=== PATIENT | female | born 1945 | race Caucasian/White ===

== ENCOUNTER 2024-05-05 13:11 | Outpatient (CLI) | payer MEDICARE, SELFPAY ==
--- NOTE | 2024-05-05 13:18 | XR_ITS ---
FINAL REPORT CLINICAL HISTORY: left shoulder pain COMPARISON: None FINDINGS: LEFT SHOULDER 3 views demonstrate no acute fracture or dislocation. There is mild degenerative change. The visualized bony structures are well aligned. No soft tissue abnormality is seen. IMPRESSION: Mild degenerative change without acute bony abnormality. Reviewed, Interpreted and Dictated by Jd Thorne III, MD Transcribed by Tayla Logan Authenticated and [facility]
--- NOTE | 2024-05-05 13:18 | XR_ITS ---
FINAL REPORT CLINICAL HISTORY: right knee pain COMPARISON: None FINDINGS: Three views of the right knee reveal no evidence of fracture or dislocation. The patient is status post knee arthroplasty. The bony alignment is normal. The joint spaces are preserved. There is no evidence of joint effusion. No localized soft tissue abnormality is identified. Mild vascular calcifications are noted. IMPRESSION: Postoperative changes without acute abnormality identified. Reviewed, Interpreted and Dictated by Jd Thorne III, MD Transcribed by Tayla Logan Authenticated and [facility]
== END 2024-05-05 23:59 | disposition home or self-care (01) ==
PROVIDERS: PCP Internal Medicine Adolescent Medicine; Visit Provider Orthopaedic Surgery
DX: M25.561 Pain in right knee (principal); M25.512 Pain in left shoulder
CPT/HCPCS: 73030; 73562

== ENCOUNTER 2025-06-15 16:40 | Outpatient (CLI) | payer MEDICARE, SELFPAY ==
--- OUTSIDE RECORDS SUMMARY | 2024-08-17 13:00 | XMS_ITS | Encounter Summary ---
Author Organization [employer] ([place], [place], [place], [place], [place]) Address [address] [place] [address] Care Team Providers Care Electrical Machinist Name Role Phone Ion Burdick MD Primary Care Provider + [phone] Reason for Visit * Consultation (Routine) - Closed Specialty Diagnoses / Procedures Referred By Contac t Referred To Contact Physical Therapy Diagnoses Lumbar spine pain Gary Dailey MD [address] [place] [phone] Phone: tel: fax: Referral ID Status Reason Start Date Expiration Date V isits Requested Visits Authorized [id number] Closed Specialty Services Required 08/03/2024 09/01/2024 4 4 Encounter Details Date Type Department Care Team (Late st Contact Info) Description 08/17/2024 1:00 PM EST Treatment [facility] OP Physical Therapy [address] [place] [phone] Gary Dailey MD [address] [place] [phone] Tanika Vasquez, PT Lumbar spine pain (Primary Dx) Social History Tobacco Use Types Packs/Day Years Used Date Smoking Tobacco: Former Cigarettes Smokeless Tobacco: Never Alcohol Use Standard Drinks/Week Comments Not Currently 0 (1 standard drink = 0.6 oz pur e alcohol) Family and Community Support Answer Hardik e Recorded Help with Day to Day Activities Not on file 07/09/2023 Feeling Lonely or Isolated Not on file 07/09 Educational Attainment Answer Date Dionisio rded Speak language other than Algerian at home Not on file 07/09/2023 Want help with school or training Not on file 07/09/2023 Substance Use Answer Date Recorded Used prescription meds for non-medical reasons N ot on file 07/09/2023 Used illegal drugs past 12 months Not on file 07/09/2023 Comments Unknown Sex and Gender Information Value Date Recorded Sex Assigned at Not on file Legal Sex Female 5:30 PM CDT Gender Identity Not on file Sexual Orientation Not on file documented as of this encounter Progress Notes * Tanika Vasquez, PT - 08/17/2024 1:00 PM EST Images from the original note were not included. Outpatient Physical Therapy Progress Note 08/17/2024 Time In: 1300 Time Out: 1354 Jacqueline Dean 1945 79 y.o. 1. Lumbar spine pain Referring Provider: Gary Dailey MD Insurance: Payor: [employer] [facility] - MEDICARE MGD CARE / Plan: [facility] [email or web address] O MAP / Product Type: *No Product type* / SUBJECTIVE Patient reports she is stiff this date. Pain: 08/03 OBJECTIVE Test/Measurements Lumbar ROM (%) Percent Deficit Flexion 25% to mid toribio Extension 50% with pain Left Sidebending 50% to knee Right Sidebending 50% to knee Left Rotation 50% Right Rotation 50% Hip and knee ROM were WNL Strength Hip LEFT RIGHT Flexion 4/5 4+/5 Abduction 5/5 5/5 ADDuction 4+/5 4+/5 Strength Knee LEFT RIGHT Flexion 4+/5 4/5 Extension 4+/5 4+/5 Functional Outcome Measure: Modified Oswestry: =6% INTERVENTIONS Therapeutic Exercise Sets x Repetitions Weight/Resistance Cues/Comments HEP Bike 8 minutes [] SLR 30 x [] Bridges 30 x [] LAQ 30 x [] LTR 30 x [] Sit to stand 20 x Blue pad in chair [] Forward step ups 30 x 6 inch box [] SAQ 30 x *Not performed this date due to time [] Hamstring Curls 2 x 15 50# [] Leg press 30x 60# [] [] [] [] [] [] [] [] [] [] [] Total Time (min): 54 Total Treatment (min): 54 Timed Treatment (min): Therapeutic Exercise (53425) 53 minutes ASSESSMENT Pt tolerated all interventions well this date. Pt did appear very short of breath when performing LAQ's and required a long rest break to complete. Pt's ROM appears the same in most planes. Lateral flexion bilaterally did increase to 50% deficit. Pt's strength increased slightly in most planes. Pt had no pain with ROM or MMT this date. Pt's Modified Oswestry improved to a 6% at this time. Pt verbalized she feels as though she has gotten stronger and is walking better. Pt's gait was observed to be improved and she does not need a cane at this time. Pt will continue to benefit from skilled therapy services to improve ROM, strength, and functional mobility. PLAN Jacqueline Dean requires skilled physical therapy services to address the below stated problems/goals, using Therapeutic Exercise (40553), Therapeutic Activity (53715), Manual Therapy (88795), Neuromuscular Re-education (86874), and Pt/CG Education. Skilled intervention required to decrease pain, increase range of motion, increase strength, increase flexibility, improve balance, improve motor control, and improve functional mobility. Prognosis: Good Problems: Pain Decreased ROM Decreased strength Decreased flexibility Decreased balance Decreased functional mobility Patient Goal: Decreased Pain Improve Mobility Improve Strength Improve Balance/Decrease Falls Resume ADL's w/o Symptoms Learn Home Exercise Program Patient Education: Eval results/Plan of Care, Safety precautions, and HEP Surgical Appliance Fitter Goals: Pt will score a 4+/5 for all MMT in 12 weeks to demonstrate improve strength to improve balance andfunctional mobility. Not met. See objective Pt will score a 22/50 on the Modified Oswestry in 12 weeks to demonstrate improved function and quality of life. Met 6% Pt lumbar rotation will improve to 25% deficit in 12 weeks to improve turning when doing dishes anddriving. Not met. Slow progress Patient will be independent with discharge home exercise program to improve household ADL's. Not met, ongoing Plan of Care Certification Date: 07/17/2024 - 10/09/2024 Frequency/Duration: 2x/Week for 12 weeks Electronically signed by: Tanika Vasquez PT 08/17/2024, 2:01PM IPLE RESAW OPERATOR * Millie Manley, PT - 08/17/2024 1:00 PM EST Images from the original note were not included. Outpatient Physical Therapy Discharge Summary 08/17/2024 Jacqueline Dean 1945 1. Lumbar spine pain Referring Physician: Gary Dailey MD Insurance: Payor: [employer] [facility] - MEDICARE [facility] CARE / Plan: [facility] ACCESS HMO MAP / Product Type: *No Product type* / Date Physical Therapy Initiated: 07/17/24 Date Physical Therapy Discontinued: 08/17/24 ASSESSMENT Functional Status at Discharge: Per last progress note on 08/17/24: Pt tolerated all interventions well this date. Pt did appear very short of breath when performing LAQ's and required a long rest break to complete. Pt's ROM appears the same in most planes. Lateral flexion bilaterally did increase to 50% deficit. Pt's strength increased slightly in most planes. Pt had no pain with ROM or MMT this date. Pt's Modified Oswestry improved to a 6% at this time. Pt verbalized she feels as though she has gotten stronger and is walking better. Pt's gait was observed to be improved and she does not need a cane at this time. Pt will continue to benefit from skilled therapy services to improve ROM, strength, and functional mobility. Prison Goals: Pt will score a 4+/5 for all MMT in 12 weeks to demonstrate improve strength to improve balance andfunctional mobility. Not met. See objective Pt will score a 22/50 on the Modified Oswestry in 12 weeks to demonstrate improved function and quality of life. Met 6% Pt lumbar rotation will improve to 25% deficit in 12 weeks to improve turning when doing dishes anddriving. Not met. Slow progress Patient will be independent with discharge home exercise program to improve household ADL's. Not met, ongoing Treatment: Therapeutic Exercise (82082) Number of Goals Met: Surgical Appliance Fitter Goal 2 Number of Goals Not Met: Surgical Appliance Fitter Goal 1, Surgical Appliance Fitter Goal 3, and Prison Goal 4 Reason Goals Not Met: Incomplete POC RECOMMENDATIONS Education Provided: yes Family Present: no HEP Issued: yes Discharge Plan and Recommendations/Continuum of Care: Continue HEP Discharge Disposition: Fair IPLE RESAW OPERATOR documented in this encounter Plan of Treatment Not on file documented as of this encounter Visit Diagnoses Diagnosis Lumbar spine pain- Primary documented in this encounter Care Teams Electrical Machinist Relationship Specialty Start Date End Date Ion Burdick MD [address] [place] [phone] PCP - General Internal Medicine/Pediatrics 05/10/22 documented as of this encounter
--- OUTSIDE RECORDS SUMMARY | 2025-04-21 14:30 | XMS_ITS | Encounter Summary ---
Author Organization [employer] ([place], [place], [place], [place], [place]) Address [address] [place] [address] Care Team Providers Care Audit Clerks Supervisor Name Role Phone Ion Burdick MD Primary Care Provider + [phone] Reason for Visit * Consultation (Routine) - Closed Specialty Diagnoses / Procedures Referred By Contac t Referred To Contact Physical Therapy Diagnoses Lumbar radiculopathy Jaida Durand, CAREER PROFESSIONAL [address] [place] [address] Phone: tel: fax: Referral ID Status Reason Start Date Expiration Date V isits Requested Visits Authorized [id number] Closed Specialty Services Required 02/26/2025 04/26/2025 8 8 Encounter Details Date Type Department Care Team (Late st Contact Info) Description 04/21/2025 3:30 PM EDT Treatment [facility] OP Physical Therapy [address] [place] [phone] Gary Dailey MD [address] [place] [phone] Gricelda Matthews PTA Lumbar radiculopathy (Primary Dx); Lumbar spine pain Social History Tobacco Use Types Packs/Day Years [...] Date Dionisio rded Speak language other than Guyanese at home Not on file 07/09/2023 Want [...] as of this encounter Progress Notes * Gricelda Jessica Matthews, TRANSPLANT REGISTERED NURSE - 04/21/2025 3:30 PM EDT Images from the original note were not included. Outpatient Physical Therapy Treatment Note Date of Service: 04/21/2025 Time In: 1531 Time Out: 1611 Patient name: Jacqueline Dean : 1945, 79 y.o. Medical Diagnosis: 1. Lumbar radiculopathy 2. Lumbar spine pain Referring Provider: Jaida Durand APRN Payor: [facility] - MEDICARE MGD CARE / Plan: [facility] HMO MAP / Product Type: *No Product type* / SUBJECTIVE Patient reports she is having pain in her back of a 4/10 today. Patient reports she is still havingsome swelling and small blister like places on her right lower leg and is going to go to the doctorto have them looked at. Patient reports she is also not sleeping good but not sure why. Pain: 10 OBJECTIVE INTERVENTIONS Therapeutic Exercise Sets x Repetitions Weight/Resistance Cues/Comments HEP PN is due 05/14/25 Nustep 5 min Level 5 [] Seated ball roll outs with ball 2 min [] Diagonal ball roll outs with ball 2 min LAQ BLE 2 x 15 [] Marching seated 2 x 15 1 lb *not performed this session [] Seated HS pull 20x Green TBand [] Squats mini 2 x 10 At [facility] [] Standing heel/toe raises 2 x 10 [] Standing hip abduction 2 x 10 At [facility] [] Standing hip flexion 2 x 10 *not performed this session At [facility] [] Seated marching 2 x 10 *not performed this session Seated hip adduction 2 mins Frozen ball [] Seated hip abduction 2 x 15 Green TBand [] Seated Upper Trunk Rotations [address]x [address] *per patient tolerance [] -Lifts from Hi/Low bed 10x 5# marcel montenegro *not performed this session At knee level [] Seated Trunk Sidebends [address] [] [] [] [] [] ASSESSMENT Treatment continues to focus on improving lumbar range of motion and core stability to improve functional mobility while decreasing pain levels. Current interventions were continued to improve patients tolerance to recent progressions of exercises along with adding some standing exercises back to tr eatment to improve standing tolerance. Patient performed therex with mild difficulty with recovery breaks as needed during session. Patient tolerated treatment overall fairly well with no increase ofpain per patient reports by end of session. Will continue to progress per patient tolerance. Patient will continue to benefit from skilled PT intervention to achieve premorbid level of function. PLAN Interventions: Continue Therapeutic Exercise (72559), Therapeutic Activity (61149), and Pt/CG Education Prognosis: Good Patient requires follow-up: Yes Total Treatment (min): 40' Timed Treatment (min): Therapeutic Exercise (40761) 40 minutes Electronically signed: Gricelda Matthews PTA 04/22/2025, 3:11 PM EDT documented in this encounter Plan of Treatment Not on file documented as of this encounter Visit Diagnoses Diagnosis Lumbar radiculopathy- Primary Thoracic or lumbosacral neuritis or radiculitis, unspecified Lumbar spine pain documented in this encounter Care Teams Audit Clerks Supervisor Relationship Specialty Start Date End Date Ion Burdick MD [address] [place] [id number] PCP - General Internal Medicine/Pediatrics 05/10/22 documented as of this encounter
--- NOTE | 2025-06-15 16:15 | MR_ITS ---
PROCEDURE INFORMATION: Exam: MR Lumbar Spine Without Contrast Exam date and time: 06/15/2025 5:03 PM Age: 80 years old Clinical indication: Low back pain; Fall x 5 weeks ago. Right leg swelling and pain down right leg; Additional info: Shoulder, knee and back pain TECHNIQUE: Imaging protocol: Magnetic resonance imaging of the lumbar spine without contrast. COMPARISON: No relevant prior studies available. FINDINGS: Bones/joints: Bone marrow edema in the superior endplate of L2. Spinal cord: Visualized cord, conus medullaris and cauda equina are unremarkable without compression. L1-L2: Disc bulge with bilateral facet and ligamentum flavum hypertrophy producing mild spinal stenosis. L2-L3: Disc bulge with bilateral facet and ligamentum flavum hypertrophy producing mild spinal stenosis. L3-L4: Disc bulge with bilateral facet and ligamentum flavum hypertrophy producing moderate spinal stenosis. L4-L5: Disc bulge with bilateral facet and ligamentum flavum hypertrophy producing moderate spinal stenosis. L5-S1: Central disc protrusion without spinal stenosis. Soft tissues: Unremarkable. IMPRESSION: 1. Bone marrow edema in the superior endplate of L2. This could represent an acute/subacute fracture. 2. Multilevel degenerative changes as detailed above most pronounced at L3-L4 and L4-L5.
--- OUTSIDE RECORDS SUMMARY | 2025-06-15 16:44 | XMS_ITS | Clinical Summary ---
Author Organization [employer] ([place], [place], [place], [place], [place]) Address [address] [place] [address] Care Team Providers Care Product Marketing Manager Name Role Phone Ion Burdick MD Primary Care Provider + [phone] Allergies Active Allergy Reactions Criticality Noted Date Comments Codeine Other (See Comments) 06/02/2015 Medications atorvastatin (LIPITOR) 40 MG tablet Take 1 tablet (40 mg total) by mouth daily. 08/08/2023 Active Trelegy Ellipta 200-62.5-25 mcg DsDv 1 puff daily. 08/15/2023 Active levothyroxine (SYNTHROID, LEVOTHROID) 175 MCG tablet Take 1 tablet (175 mcg total) by mouth daily. 08/08/2023 Active losartan-hydroch lorothiazide (HYZAAR) 100-12.5 mg per tablet Take 1 tablet by mouth daily. 08/08/2023 Active Nucala 100 mg/mL AtIn Inject subcutaneous ly. 08/12/2023 Active montelukast (SINGULAIR) 10 mg tablet Take 1 tablet (10 mg total) by mouth daily. 08/08/2023 Active omeprazole (PriLOSEC) 40 MG capsule Take 1 capsule (40 mg total) by mouth daily. 08/08/2023 Active sertraline (ZOLOFT) 100 MG tablet Take by mouth. 08/08/2023 Active traZODone (DESYREL) 100 MG tablet Take 1 tablet (100 mg total) by mouth nightly. Active levocetirizine (XYZAL) 5 MG tablet Take 1 tablet (5 mg total) by mouth every evening. Active ergocalciferol (Vitamin D2) 1,250 mcg (50,000 unit) capsuleIndicatio ns:Vitamin D deficiency Take 1 capsule PO once monthly.. 1 capsule 11 10/30/2023 Active hydroCHLOROthiaz pratik (HYDRODIURIL) 12.5 MG tablet Take 1 tablet (12.5 mg total) by mouth daily. 05/14/2024 Active mirabegron (Myrbetriq) 25 mg Tb24 ER tabletIndication s:Urinary incontinence, unspecified type Take 1 tablet (25 mg total) by mouth daily. 30 tablet 6 2024 Active rOPINIRole (REQUIP) 1 MG tablet Take 1 tablet (1 mg total) by mouth 2 (two) times daily. 07/23/2024 Active Active Problems No known active problems Encounters Date Type Department Care Team Description 04/21/2025 3:30 PM EDT Treatment [facility] OP Physical Therapy [address] [place], [place] [phone] Gary Dailey MD Williams, Jessica A, JEWEL HOLE ROUGH OPENER Lumbar radiculopathy (Primary Dx); Lumbar spine pain 04/21/2025 Travel 04/14/2025 3:30 PM EDT Treatment [facility] OP Physical Therapy [address] [place] [phone] Gary Dailey MD Williams, Jessica A, JEWEL HOLE ROUGH OPENER Lumbar radiculopathy (Primary Dx); Lumbar spine pain 04/14/2025 Travel 04/08/2025 5:30 PM EDT - 04/08/2025 6:34 PM EDT Emergency [facility] Emergency Department [address] [place] [phone] Doug Lundberg MD Right leg pain (Primary Dx) Discharge Disposition: Home or Self Care 04/08/2025 Travel 04/02/2025 2:45 PM EDT Treatment [facility] OP Physical Therapy [address] [place] [phone] Gary Dailey MD Williams, Jessica A, JEWEL HOLE ROUGH OPENER Lumbar radiculopathy (Primary Dx); Lumbar spine pain 04/02/2025 Travel 03/26/2025 1:45 PM EDT Treatment [facility] OP Physical Therapy [address] [place] [phone] Gary Dailey MD Williams, Jessica A, JEWEL HOLE ROUGH OPENER Lumbar radiculopathy (Primary Dx); Lumbar spine pain 03/26/2025 Travel 03/22/2025 1:45 PM EDT Treatment [facility] OP Physical Therapy [address] [place] [phone] Gary Dailey MD Williams, Jessica A, JEWEL HOLE ROUGH OPENER Lumbar radiculopathy (Primary Dx); Lumbar spine pain 03/22/2025 Travel 03/16/2025 3:30 PM EDT Treatment [facility] OP Physical Therapy [address] [place] [phone] Gary Dailey MD Williams, Jessica A, JEWEL HOLE ROUGH OPENER Lumbar radiculopathy (Primary Dx); Lumbar spine pain 03/16/2025 Travel from Last 3 Months Family History Medical History Relation Name Comments Parkinsonism Father Diabetes Mother Relation Name Status Comments Brother 1 Brother 2 Brother 3 Alive Father Mother Sister 1 Alive Sister 2 Social History Tobacco Use Types Packs/Day Years Used Date Smoking Tobacco: Former Cigarettes Smokeless Tobacco: Never Tobacco Cessation:Counseling Given: Not Answered Alcohol Use Standard Drinks/Week Comments Not Currently 0 (1 standard drink = 0.6 oz pur e alcohol) Family and Community Support Answer Hardik e Recorded Help with Day to Day Activities Not on file 07/09/2023 Feeling Lonely or Isolated Not on file 07/09 Educational Attainment Answer Date Dionisio rded Speak language other than Tuvaluan at home Not on file 07/09/2023 Want [...] on file Sexual Orientation Not on file Last Filed Vital Signs Vital Sign Reading Time Taken Comments Blood Pressure 170/75 04/08/2025 6:09 PM EDT Pulse 65 04/08/2025 6:09 PM EDT Temperature 36.6 C (97.9 F) 04/08/2025 5:36 PM EDT Respiratory Rate 20 04/08/2025 5:36 PM EDT Oxygen Saturation 94% 04/08/2025 6:09 PM EDT Inhaled Oxygen Concentration - - Weight 106.6 kg (235 lb) 04/08/2025 5:36 PM EDT Height 162.6 cm (5' 4 ) 04/08/2025 5:36 PM EDT Body Mass Index 40.34 04/08/2025 5:36 PM EDT Plan of Treatment Health Maintenance Due Date Last Done Comments DXA SCAN 1945 Depression Screening (12+) 1959 Hepatitis C Screening 1965 DTAP/TDAP/TD VACCINES (1 - Tdap) 1966 Shingles Vaccine (Zoster) (1 of 2) 1997 Medicare Initial AWV G0438 06/25/2019 Respiratory Syncytial Virus (RSV) Adult or (1 - 1-dose 75+ series) 2022 Falls Risk Screening 06/24/2024 COVID-19 VACCINE (6 - 2024-2 6 season) 2025 03/12/2022, 03/12/2022, 04/25/2021, Additional history exists Influenza Vaccine (#1) 2025 , 04/07/2021, 03/20/2018, Additional history exists Tobacco Cessation Counseling and Screening (12+) 04/08/2026 04/08/2025 Pneumococcal 50+ years Completed 01/05/2022, 2016 Breast Cancer Screening Discontinued 05/10/2022 Procedures Procedure Name Priority Date/Time Associated Diagnosis Comments US DOPPLER VENOUS LEG RIGHT STAT 04/08/2025 5:52 PM EDT MM DIGITAL MAMMO SCREEN BILATERAL Routine 05/10/2022 10:13 AM EST Visit for screening mammogram from Last 3 Months or Most Recently Relevant to Health Maintenance Results * US DOPPLER VENOUS LEG RIGHT (04/08/2025 5:52 PM EDT) Anatomical Region Laterality Modality Lower Extremity Ultrasound 04/08/2025 5:57 PM EDT Impressions 04/08/2025 5:59 PM EDT No evidence of deep venous thrombosis. Images reviewed, interpreted, and dictated by Dr. Juanjo Abrams. Transcribed by Blane San. Narrative 04/08/2025 5:59 PM EDT RIGHT LOWER EXTREMITY VENOUS DOPPLER CLINICAL HISTORY: Possible deep venous thrombosis. COMPARISON: None. FINDINGS: Man-scale, color Doppler and pulsed Doppler evaluation reveal normal compressibility, flow, and augmentation. There are normal venous waveforms. Procedure Note Juanjo Abrams MD - 04/08/2025 RIGHT LOWER EXTREMITY VENOUS DOPPLER CLINICAL HISTORY: Possible deep venous thrombosis. COMPARISON: None. FINDINGS: Man-scale, color Doppler and pulsed Doppler evaluation reveal normal compressibility, flow, and augmentation. There are normal venous waveforms. IMPRESSION: No evidence of deep venous thrombosis. Images reviewed, interpreted, and dictated by Dr. Juanjo Abrams. Transcribed by Blane San. Alex Ferrer PA-C CV VASCULAR ORDERABLES Dimple l Result * MM digital mammo screen bilateral (05/10/2022 10:13 AM EST) Anatomical Region Laterality Modality Breast Bilateral Mammography 05/11/2022 8:08 AM EST Impressions 05/11/2022 8:09 AM EST BI-RADS 1, negative. Recommendation is for yearly follow-up mammography. Narrative 05/11/2022 8:09 AM EST Bilateral digital screening mammogram with CAD FINDINGS: Comparison date: 03/01/2021 and 11/24/2019 Standard views. Breast parenchyma: Scattered areas of fibroglandular density There are no new or suspicious densities. There are no focal clusters of calcifications. There are no areas of focal mammographic concern. There have been no appreciable changes. Ion Burdick MD IMG MAMMOGRAPHY ORDERABLES F inal Result from Last 3 Months or Most Recently Relevant to Health Maintenance Insurance [facility] ACCESS HMO MAP Care Teams Product Marketing Manager Relationship Specialty Start Date End Date Ion Burdick MD [address] [place] [phone] PCP - General Internal Medicine/Pediatrics 05/10/22
--- OUTSIDE RECORDS SUMMARY | 2025-06-15 16:44 | XMS_ITS | Referral Summary ---
Author Organization [employer] ([place], [place], [place], [place], [place]) Address [address] [place] [address] Care Team Providers Care Physical Science Technician Name Role Phone Ion Burdick MD Primary Care Provider [phone] Encounters Date Type Department Care Team Description 04/21/2025 Travel 04/21/2025 3:30 PM EDT Treatment [facility] OP Physical Therapy [address] [place] [phone] Gary Dailey MD Williams, Jessica A, LAND SURVEYING MANAGER Lumbar radiculopathy (Primary Dx); Lumbar spine pain 04/14/2025 Travel 04/14/2025 3:30 PM EDT Treatment [facility] OP Physical Therapy [address] [place] [phone] Gary Dailey MD Williams, Jessica A, LAND SURVEYING MANAGER Lumbar radiculopathy (Primary Dx); Lumbar spine pain 04/08/2025 Travel 04/08/2025 5:30 PM EDT - 04/08/2025 6:34 PM EDT Emergency [facility] Emergency Department [address] [place] [phone] Doug Lundberg MD Right leg pain (Primary Dx) Discharge Disposition: Home or Self Care 04/02/2025 Travel 04/02/2025 2:45 PM EDT Treatment [facility] OP Physical Therapy [address] [place] [phone] Gary Dailey MD Williams, Jessica A, LAND SURVEYING MANAGER Lumbar radiculopathy (Primary Dx); Lumbar spine pain 03/26/2025 Travel 03/26/2025 1:45 PM EDT Treatment [facility] OP Physical Therapy [address] [place] [phone] Gary Dailey MD Williams, Jessica A, LAND SURVEYING MANAGER Lumbar radiculopathy (Primary Dx); Lumbar spine pain 03/22/2025 Travel 03/22/2025 1:45 PM EDT Treatment [facility] OP Physical Therapy [address] [place] [phone] Gary Dailey MD Williams, Jessica A, LAND SURVEYING MANAGER Lumbar radiculopathy (Primary Dx); Lumbar spine pain 03/16/2025 Travel 03/16/2025 3:30 PM EDT Treatment [facility] Physical Therapy [address] [place] [phone] Gary Dailey MD Williams, Jessica A, LAND SURVEYING MANAGER Lumbar radiculopathy (Primary Dx); Lumbar spine pain from Last 3 Months Allergies Active Allergy Reactions Criticality Noted Date [...] Active Active Problems No known active problems Social History Tobacco Use Types Packs/Day Years [...] Date Dionisio rded Speak language other than Trinidadian at home Not on file 07/09/2023 Want [...] 04/08/2025 5:36 PM EDT Plan of Treatment Not on file Procedures Procedure Name Priority Date/Time Associated Diagnosis [...] Dr. Juanjo Abrams. Transcribed by Blane San. us Teshla Nabil PA-C CV VASCULAR ORDERABLES Dimple l Result [...] been no appreciable changes. Ion Burdick MD [facility] ORDER[facility] F inal Result from Last 3 Months or Most Recently Relevant to Health Maintenance Insurance [facility] ACCESS O MAP Care Teams Physical Science Technician Relationship Specialty Start Date End Date Ion Burdick MD [address] [place] [id number] PCP - General Internal Medicine/Pediatrics 05/10/22
--- OUTSIDE RECORDS SUMMARY | 2025-06-15 16:44 | XMS_ITS | Clinical Summary ---
Author Organization [facility] Address [address], [address] [place] [address] Care Team Providers Care Boring Machine Operator Production Name Role Phone Unavailable Primary Care Provider Unavailabl e Social History Tobacco Use Types Packs/Day Years Used Date Smoking Tobacco: Never Assessed Comments Unknown Sex and Gender Information Value Date Recorded Sex Assigned at Not on file Legal Sex Female 5:50 PM EST Gender Identity Not on file Sexual Orientation Not on file Plan of Treatment Not on file
--- OUTSIDE RECORDS SUMMARY | 2025-06-15 16:44 | XMS_ITS | Encounter Summary ---
Author Organization [employer] ([place], [place], [place], [place], [place]) Address [address] [place] [address] Care Team Providers Care Office Runner Name Role Phone Ion Burdick MD Primary Care Provider + [phone] Encounter Details Date Type Department Care Team (Latest Contact Info) Description 04/21/2025 Travel Social History Tobacco Use Types Packs/Day Years [...] Date Dionisio rded Speak language other than [place]ralt[place] at home Not on file 07/09/2023 Want [...] on file documented as of this encounter Functional Status * Communicable Disease Screening Question Answer Date of Assessment Author Have you been in contact wit h someone who was sick? No / Unsure 04/21/2025 3:27 PM CDT Nishant Sotomayor Do you have any of the follo wing new or worsening symptoms? None of these 04/21/2025 3:27 PM CDT Beth Sotomayor documented as of this encounter Plan of Treatment Not on file documented as of this encounter Visit Diagnoses Not on filedocumented in this encounter Care Teams Office Runner Relationship Specialty Start Date End Date Ion Burdick MD [address] [place] [id number] PCP - General Internal Medicine/Pediatrics 05/10/22 documented as of this encounter
== END 2025-06-15 23:59 | disposition home or self-care (01) ==
LOC: RAD 16:43
PROVIDERS: PCP Internal Medicine Adolescent Medicine; Visit Provider Orthopaedic Surgery
DX: M48.061 Spinal stenosis, lumbar region without neurogenic claudication (principal); M51.16 Intervertebral disc disorders with radiculopathy, lumbar region; M47.26 Other spondylosis with radiculopathy, lumbar region; R93.7 Abnormal findings on diagnostic imaging of other parts of musculoskeletal system
CPT/HCPCS: 72148